=== PATIENT | male | born 1975 | race African-American/Black ===

== ENCOUNTER 2016-11-11 22:41 | Inpatient (IN) | payer OTHER ==
[~2016-11-11] VITALS: Ht 188 cm; Wt 88.0 kg
[~2016-11-11 22:41] MED LIST: CIPR500T4 PO; IBUP-232 PO; ZOFR4TAB3 SL
[2016-11-11 22:47] VITALS: BP 128/75; PULSE 86; RESP 20; O2SAT 99
[2016-11-11 22:54] VITALS: O2SAT 99
[2016-11-11] MEDS ORDERED: SODIUM CHLORIDE 0.9% FLUSH 10 ML FLUSH IVF PRN (23:00)
[2016-11-11 23:04] LABS: AUTOMATED NEUTROPHIL # 4.1 TH/MM3 (1.8-7.7); BASOPHIL # 0.1 TH/MM3 (0-0.2); EOSINOPHIL # 0.2 TH/MM3 (0-0.4); EOSINOPHIL % 2.3 % (0.0-4.0); HEMATOCRIT 37.6 % (39.0-51.0); LYMPH % 42.7 % (9.0-44.0); LYMPHOCYTE # 3.7 TH/MM3 (1.0-4.8); MEAN CELL VOLUME 87.8 FL (80.0-100.0); MEAN CORPUSCULAR HEMOGLOBIN 29.6 PG (27.0-34.0); MEAN CORPUSCULAR HGB CONC 33.7 % (32.0-36.0); MONO % 6.9 % (0.0-8.0); NEUT % 47.1 % (16.0-70.0); PLATELET COUNT 249 TH/MM3 (150-450); RED BLOOD COUNT 4.28 MIL/MM3 (4.50-5.90); RED CELL DISTRIBUTION WIDTH 12.7 % (11.6-17.2); WHITE BLOOD COUNT 8.7 TH/MM3 (4.0-11.0)
[2016-11-11 23:07] LABS: HEMO FLAGS AUTO DIFF
[2016-11-11 23:23] LABS: APTT (PATIENT) 28.8 SEC (24.3-30.1); PROTHROMBIN TIME - PATIENT 11.4 SEC (9.8-11.6)
[2016-11-11 23:28] LABS: ANION GAP 10 MEQ/L (5-15); BICARBONATE 27.2 MEQ/L (21.0-32.0); BLOOD UREA NITROGEN 10 MG/DL (7-18); CHLORIDE 104 MEQ/L (98-107); GLOMERULAR FILTRATION RATE 92 ML/MIN (>89); MAGNESIUM 1.9 MG/DL (1.5-2.5); POTASSIUM 3.3 MEQ/L (3.5-5.1); SODIUM (NA) 141 MEQ/L (136-145)
[2016-11-11 23:31] LABS: CREATINE KINASE 332 U/L (39-308)
[2016-11-11 23:33] LABS: PLATELET ESTIMATE SMEAR NORMAL (NORMAL); PLATELET MORPHOLOGY NORMAL (NORMAL); SCAN/DIFF AUTO DIFF CONFIRMED
--- NOTE | 2016-11-11 23:36 | RADRPT ---
EXAM DATE/TIME: 11/11/2016 22:57 [facility] COMPARISON: No previous studies available for comparison. INDICATIONS : Fall. MEDICAL HISTORY : None. SURGICAL HISTORY : None. ENCOUNTER: Initial ACUITY: 1 day PAIN SCORE: Non-responsive. LOCATION: Bilateral chest FINDINGS: A single view of the chest demonstrates the lungs to be symmetrically aerated without evidence of mas s, infiltrate or effusion. The cardiomediastinal contours are unremarkable. Osseous structures are intact. CONCLUSION: No acute disease. Rubin Lopez Jr., MD on November 11, 2016 at 23:34 Board Certified Radiologist. This report was verified electronically.
--- NOTE | 2016-11-11 23:39 | RADRPT ---
EXAM DATE/TIME: 11/11/2016 23:18 [facility] COMPARISON: No previous studies available for comparison. INDICATIONS : Right hip pain post fall. MEDICAL HISTORY : None. SURGICAL HISTORY : None. ENCOUNTER: Initial ACUITY: 1 day PAIN SCORE: 8/10 LOCATION: Right pelvis FINDINGS: Examination of the right hip was performed with AP Pelvis. The primary and secondary trabecular jorge alnce of the femoral neck is intact. The hip joint is of normal width without significant sclerosis or bony hypertrophy. The acetabulum is grossly intact. CONCLUSION: Unremarkable examination of the right hip. Rubin Lopez Jr., MD on November 11, 2016 at 23:36 Board Certified Radiologist. This report was verified electronically.
[2016-11-11 23:43] LABS: CKMB 3.1 NG/ML (0.5-3.6)
[2016-11-11 23:59] VITALS: O2SAT 98
[2016-11-12] VITALS (9 sets, daily range): BP systolic 95–120; BP diastolic 58–76; PULSE 50–72; RESP 16–18; TEMP 97.3–97.8; O2SAT 98–100
[2016-11-12] MEDS ORDERED: HYDROmorphone HCL PF 1 MG/ML VIAL IV PUSH ONE
[2016-11-12] MEDS ORDERED: ONDANSETRON HCL 4 MG/2 ML VIAL IV ONE
[2016-11-12] MEDS ORDERED: SODIUM CHLOR 0.9% 1000 ML INJ 1,000 ML IV ONE
--- NOTE | 2016-11-12 00:57 | RADRPT ---
EXAM DATE/TIME: 11/12/2016 00:22 [facility] COMPARISON: No previous studies available for comparison. INDICATIONS : Unwitnessed fall with positive loss of consciousness. Altered mental status. RADIATION DOSE: 45.8 CTDIvol (mGy) MEDICAL HISTORY : None SURGICAL HISTORY : None. ENCOUNTER: Initial ACUITY: 1 day PAIN SCALE: 6/10 LOCATION: cranial TECHNIQUE: Multiple contiguous axial images were obtained of the head. Using automated exposure control and adj ustment of the mA and/or kV according to patient size, radiation dose was kept as low as reasonably a chievable to obtain optimal diagnostic quality images. FINDINGS: CEREBRUM: The ventricles are normal for age. No evidence of midline shift, mass lesion, hemorrhage or acute in farction. No extra-axial fluid collections are seen. POSTERIOR FOSSA: The cerebellum and brainstem are intact. The 4th ventricle is midline. The cerebellopontine angle i s unremarkable. EXTRACRANIAL: The visualized portion of the orbits is intact. SKULL: The calvaria is intact. No evidence of skull fracture. CONCLUSION: Normal examination. Rubin Lopez Jr., MD on November 12, 2016 at 0:54 Board Certified Radiologist. This report was verified electronically.
--- NOTE | 2016-11-12 01:00 | RADRPT ---
EXAM DATE/TIME: 11/12/2016 00:25 [facility] COMPARISON: No previous studies available for comparison. INDICATIONS : Unwitnessed fall with positive loss of consciousness. Altered mental status. RADIATION DOSE: 36.79 CTDIvol (mGy) MEDICAL HISTORY : None SURGICAL HISTORY : None. ENCOUNTER: Initial ACUITY: 1 day PAIN SCORE: 7/10 LOCATION: facial TECHNIQUE: Volumetric scanning of the facial bones was performed. Using automated exposure control and adjustme nt of the mA and/or kV according to patient size, radiation dose was kept as low as reasonably achiev able to obtain optimal diagnostic quality images. FINDINGS: ORBITS: The orbital and infraorbital osseous structures are intact. The retroconal structures have a normal configuration. No radiopaque foreign bodies are seen. NASAL BONE: The nasal bone and maxillary spine are intact ZYGOMATIC ARCHES: Symmetric without evidence of fracture. SINUSES: The maxillary, ethmoid and frontal sinuses are intact. No air-fluid levels seen. Small mucous retent ion cysts are seen involving both maxillary sinuses. Minimal mucosal thickening is seen involving eth moid air cells bilaterally. NASAL CAVITY: The nasal septum is intact and midline. The lacrimal ducts are intact. SOFT TISSUES: Tiny punctate densities are seen involving the skin surface or immediate superficial dermal layers ov erlying the forehead. No soft-tissue swelling is seen. INTRACRANIAL: No intracranial air seen. CRIBIFORM PLATE: Grossly intact. CONCLUSION: 1. No acute abnormality. 2. Multiple tiny punctate densities seen involving either the skin surface or the immediate dermal la yers. 3. Chronic sinus disease. Rubin Lopez Jr., MD on November 12, 2016 at 0:55 Board Certified Radiologist. This report was verified electronically.
[2016-11-12] MEDS ORDERED: IOHEXOL 350 MG/ML 10 ML VIAL (for RAD DIAG) IV ONE ×2 (01:01→20:22)
--- NOTE | 2016-11-12 01:13 | RADRPT ---
EXAM DATE/TIME: 11/12/2016 00:22 [facility] COMPARISON: No previous studies available for comparison. INDICATIONS : Unwitnessed fall with positive loss of consciousness. Altered mental status. RADIATION DOSE: ; Reconstructed from previous dataset MEDICAL HISTORY : None SURGICAL HISTORY : None. ENCOUNTER: Initial ACUITY: 1 day PAIN SCALE: 7/10 LOCATION: neck TECHNIQUE: Volumetric scanning of the cervical spine was performed. Multiplanar reconstructions in the sagittal, coronal and oblique axial planes were performed. Using automated exposure control and adjustment o f the mA and/or kV according to patient size, radiation dose was kept as low as reasonably achievable to obtain optimal diagnostic quality images. FINDINGS: VERTEBRAE: Normal vertebral body height. ALIGNMENT: No evidence of subluxation. C2-C3: The bony spinal canal is normal in size. No evidence of disc bulge or herniation. The neural forami na are bilaterally patent. C3-C4: The bony spinal canal is normal in size. No evidence of disc bulge or herniation. The neural forami na are bilaterally patent. C4-C5: The bony spinal canal is normal in size. No evidence of disc bulge or herniation. The neural forami na are bilaterally patent. C5-C6: The bony spinal canal is normal in size. No evidence of disc bulge or herniation. The neural forami na are bilaterally patent. C6-C7: The bony spinal canal is normal in size. No evidence of disc bulge or herniation. The neural forami na are bilaterally patent. C7-T1: The bony spinal canal is normal in size. No evidence of disc bulge or herniation. The neural forami na are bilaterally patent. CONCLUSION: Normal examination. Rubin Lopez Jr., MD on November 12, 2016 at 1:09 Board Certified Radiologist. This report was verified electronically.
[2016-11-12] MEDS ORDERED: LIDOCAINE 1%/EPINEPHrine 1:100,000 SOLN 20 ML VIAL INFIL ONE (02:00)
--- NOTE | 2016-11-12 02:26 | RADRPT ---
EXAM DATE/TIME: 11/12/2016 00:22 [facility] COMPARISON: No previous studies available for comparison. INDICATIONS : Unwitnessed fall with positive loss of consciousness. Altered mental status. IV CONTRAST: 100 cc Omnipaque 350 (iohexol) IV ; Cumulative dose for multiple exams. RADIATION DOSE: 15.45 CTDIvol (mGy) ; Combined studies MEDICAL HISTORY : None SURGICAL HISTORY : None. ENCOUNTER: Initial ACUITY: 1 day PAIN SCALE: 6/10 LOCATION: cranial Elevated flow velocities and ICA/CCA ratios have been found to correlate with increased degrees of vessel stenosis, calculated as percentage of diameter relative to a normal segment of distal ICA/CCA. TECHNIQUE: Volumetric scanning was performed using a multirow detector CT scanner. The data was post processed with a variety of visualization algorithms including full-volume maximum intensity projection, multip lanar sliding thin-slab reformation, curved-planar reformation, and surface-rendering techniques. Us ing automated exposure control and adjustment of the mA and/or kV according to patient size, radiatio n dose was kept as low as reasonably achievable to obtain optimal diagnostic quality images. FINDINGS: AORTIC ARCH: On the initial image of the study there is a linear area of decreased density involving the ascending aorta just proximal to the arch. There is motion artifact in this portion of the exam. There is a th ree-vessel origin of the great vessels from the aorta. No evidence of ostial narrowing. RIGHT CAROTID: The common carotid artery is intact. The carotid bulb has a normal configuration without ulceration o r narrowing. The internal carotid artery lumen is smooth without stenosis. The external carotid estrellita ry is intact. LEFT CAROTID: The common carotid artery is intact. The carotid bulb has a normal configuration without ulceration or narrowing. The internal carotid artery lumen is smooth without stenosis. The external carotid ar gary is intact. VERTEBRALS: The vertebral arteries have a symmetric diameter. No stenotic lesions are seen. CONCLUSION: 1. On the initial image of the study there is a linear area of decreased density involving the ascend ing aorta. This is an area of motion artifact. This may simply be artifact in nature due to the motio n. I cannot exclude a dissection involving ascending aorta. A CTA of the thoracic aorta would be need ed to further evaluate. 2. Patent carotid arteries and vertebral arteries bilaterally. Rubin Lopez Jr., MD on November 12, 2016 at 2:20 Board Certified Radiologist. This report was verified electronically.
--- NOTE | 2016-11-12 02:28 | RADRPT ---
EXAM DATE/TIME: 11/12/2016 00:22 [facility] COMPARISON: No previous studies available for comparison. INDICATIONS : Unwitnessed fall with positive loss of consciousness. Altered mental status. IV CONTRAST: 100 cc Omnipaque 350 (iohexol) IV ; Cumulative dose for multiple exams. RADIATION DOSE: 15.45 CTDIvol (mGy) ; Combined studies MEDICAL HISTORY : None SURGICAL HISTORY : None. ENCOUNTER: Initial ACUITY: 1 day PAIN SCALE: 5/10 LOCATION: cranial TECHNIQUE: Volumetric scanning was performed using a multi-row detector CT scanner. The data was post processed with a variety of visualization algorithms including full volume maximum intensity projection, multi -planar sliding thin slab reformation, curved planar reformation, and surface rendering techniques. Using automated exposure control and adjustment of the mA and/or kV according to patient size, radiat ion dose was kept as low as reasonably achievable to obtain optimal diagnostic quality images. FINDINGS: There is excellent visualization of the major intracranial arteries out to the second-order branch ve ssels. There is no evidence for aneurysm, vessel truncation or stenosis, and no evidence for vascula r malformation. CONCLUSION: Normal examination. Rubin Lopez Jr., MD on November 12, 2016 at 2:25 Board Certified Radiologist. This report was verified electronically.
--- NOTE | 2016-11-12 02:34 | PD ---
Physical Exam Time Seen by Provider: 02:05 (Reilly Tatum) Data Data Last Documented VS Vital Signs Date Time Temp Pulse Resp B/P Pulse Ox O2 Delivery O2 Flow Rate FiO2 11/12/16 02:09 72 16 118/75 99 Room Air 11/11/16 23:59 2 (Maria Esther Sheriff MD) Orders Electrocardiogram (11/11/16 22:49) Basic Metabolic Panel (Bmp) (11/11/16 22:49) Complete Blood Count With Diff (11/11/16 22:49) Magnesium (Mg) (11/11/16 22:49) Ckmb (Isoenzyme) Profile (11/11/16 22:49) Troponin I (11/11/16 22:49) Act Partial Throm Time (Ptt) (11/11/16 22:49) Prothrombin Time / Inr (Pt) (11/11/16 22:49) Chest, Single Ap (11/11/16 22:49) Ct Brain W/O Iv Contrast(Rout) (11/11/16 22:49) Ct Cerv Spine W/O Contrast (11/11/16 22:49) Blood Glucose (11/11/16 22:49) Ecg Monitoring (11/11/16 22:49) Iv Access Insert/Monitor (11/11/16 22:49) Oximetry (11/11/16 22:49) Sodium Chloride 0.9% Flush (Ns Flush) (11/11/16 23:00) Ct Facial Bones W/O Iv Cont (11/11/16 ) Cta Brain W Iv Contrast W 3d (11/11/16 ) Drug Screen, Random Urine (11/11/16 23:06) Hip, Uni(Ap&Lat) W Ap Pelvis (11/11/16 23:06) Ice/Cold Pack (11/11/16 23:06) Alcohol (Ethanol) (11/11/16 22:55) CKMB (11/11/16 22:55) CKMB% (11/11/16 22:55) Cta Neck W Iv Contrast W 3d (11/11/16 23:34) Sodium Chlor 0.9% 1000 Ml Inj (Ns 1000 M (11/12/16 00:00) Ondansetron Inj (Zofran Inj) (11/12/16 00:00) Hydromorphone Pf Inj (Dilaudid Pf Inj) (11/12/16 00:00) Iohexol 350 Inj (Omnipaque 350 Inj) (11/12/16 01:01) Lidocai-Epi 1%-1:100,000 Inj (Xylocaine- (11/12/16 02:00) Admit Order (Ed Use Only) (11/12/16 02:39) (Maria Esther Sheriff MD) Labs Laboratory Tests Test 11/11/16 22:55 White Blood Count 8.7 TH/MM3 Red Blood Count 4.28 MIL/MM3 Hemoglobin 12.7 GM/DL Hematocrit 37.6 % Mean Corpuscular Volume 87.8 FL Mean Corpuscular Hemoglobin 29.6 PG Mean Corpuscular Hemoglobin 33.7 % Concent Red Cell Distribution Width 12.7 % Platelet Count 249 TH/MM3 Mean Platelet Volume 7.9 FL Neutrophils (%) (Auto) 47.1 % Lymphocytes (%) (Auto) 42.7 % Monocytes (%) (Auto) 6.9 % Eosinophils (%) (Auto) 2.3 % Basophils (%) (Auto) 1.0 % Neutrophils # (Auto) 4.1 TH/MM3 Lymphocytes # (Auto) 3.7 TH/MM3 Monocytes # (Auto) 0.6 TH/MM3 Eosinophils # (Auto) 0.2 TH/MM3 Basophils # (Auto) 0.1 TH/MM3 CBC Comment AUTO DIFF Differential Comment AUTO DIFF CONFIRMED Platelet Estimate NORMAL Platelet Morphology Comment NORMAL Red Cell Morphology Comment NORMAL Prothrombin Time 11.4 SEC Prothromb Time International 1.0 RATIO Ratio Activated Partial 28.8 SEC Thromboplast Time Sodium Level 141 MEQ/L Potassium Level 3.3 MEQ/L Chloride Level 104 MEQ/L Carbon Dioxide Level 27.2 MEQ/L Anion Gap 10 MEQ/L Blood Urea Nitrogen 10 MG/DL Creatinine 1.07 MG/DL Estimat Glomerular Filtration 92 ML/MIN Rate Random Glucose 81 MG/DL Calcium Level 9.5 MG/DL Magnesium Level 1.9 MG/DL Total Creatine Kinase 332 U/L Creatine Kinase MB 3.1 NG/ML Creatine Kinase MB % 0.9 % Troponin I LESS THAN 0.02 NG/ML Ethyl Alcohol Level LESS THAN 3 MG/DL (Maria Esther Sheriff MD) [facility] Medical Record Reviewed: Yes Supervised Visit with TOMAS: No Narrative Course This patient presents a laceration of the chin, I was asked to repair it. He verbally consents. (Reilly Tatum) Procedures Procedure Narrative LACERATION LOCATION: Chin LENGTH: 2 cm NUMBER OF STITCHES/RADHA: 6 REPAIR: The area of the laceration was prepped with Betadine and sterilely draped. The laceration was infiltrated with 1% lidocaine with epinephrine. The wound was copiously irrigated and explored without evidence of foreign body , tendon injury or neurovascular injury. The wound was closed using 6-0 prolene simple interrupted. This was a single layer repair. A sterile dressing was applied. The patient was advised to keep the dressing clean and dry. Patient tolerated the procedure well. (Reilly Tatum) Reilly Tatum Nov 12, 2016 02:34 Maria Esther Sheriff MD Nov 12, 2016 02:58
--- NOTE | 2016-11-12 03:04 | PD ---
HPI Chief Complaint: syncope Time Seen by Provider: 23:05 Travel History International Travel<30 days: No Contact w/Intl Traveler<30days: No Traveled to known affect area: No History of Present Illness HPI The patient is a 40 year old male who presents to the [facility] emergency department with a history of presenting the emergency department with altered mentation after falling and hitting his head. His awoke to him hitting the floor. The patient on arrival is not speaking regularly reports having a severe headache. The only thing that he will say about his symptoms prior to hitting his head is he did have a sensation that his heart was skipping beats. The patient denies having any neck pain. The patient reports that he does have some pain in the right hip when he moves it. During the course of the patient' s emergency department visit, the patient became more awake and alert and was able to provide additional history. The patient denies having any prior cardiac history or history of syncope. The patient does however report that last week he did have an episode of chest pain and another episode of sensations that his heart was skipping beats. The patient denies any recent fevers, cough, congestion, neck pain, abdominal pain, vomiting, diarrhea, urinary symptoms, or other neurologic symptoms. PFSH Past Medical History Narrative Medical The patient's past medical history is reportedly none. Medical History: Denies Significant Hx Diminished Hearing: No Gastrointestinal Disorders: Yes (CONSTIPATION) Tetanus Vaccination: < 5 Years Influenza Vaccination: No Past Surgical History Narrative Surgical The patient's past surgical history is significant for left hand skin. Other Surgery: Yes (L HAND SKIN GRAFT) Social History Alcohol Use: Yes (OCC) Tobacco Use: Yes (LESS THAN 1/2 PPD) Substance Use: No Allergies-Medications (Allergen,Severity, Reaction): Coded Allergies: No Known Allergies (Verified , 11/11/16) Reported Meds & Prescriptions Reported Meds & Active Scripts Active Zofran ODT (Ondansetron HCl) 4 Mg Tab 4 Mg SL QID PRN FOR NAUSEA/VOMITING Motrin (Ibuprofen) 600 Mg Tab 600 Mg PO QID GIVE WITH FOOD Cipro (Ciprofloxacin HCl) 500 Mg Tab 500 Mg PO BID Review of Systems Except as stated in HPI: all other systems reviewed are Neg General / Constitutional: No: Fever Eyes: No: Visual changes HENT: Positive: Headaches, No: Neck Stiffness, Neck Pain Cardiovascular: Positive: Chest Pain or Discomfort, Palpitations Respiratory: No: Shortness of Breath Gastrointestinal: No: Nausea, Vomiting, Diarrhea, Abdominal Pain Genitourinary: No: Dysuria Musculoskeletal: Positive: Myalgias, Pain Skin: No Rash Neurologic: Positive: Headache, Change in Mentation, No: Weakness, Focal Abnormalities, Slurred Speech, Sensory Disturbance Psychiatric: No: Depression Endocrine: No: Polydipsia Hematologic/Lymphatic: No: Easy Bruising Physical Exam Narrative General: The patient is a well-developed well-nourished male who is uncomfortable appearing on arrival, tearful, holding the right side of his head. The patient was placed in a [place] collar. Head and Neck exam: Head is normocephalic atraumatic. Eyes: EOMI, pupils are equal round and reactive to light. Nose: Midline septum with pink mucous membranes Mouth: Dentition unremarkable. Moist mucus membranes. Posterior oropharynx is not erythematous. No tonsillar hypertrophy. Uvula midline. Airway patent. On examination of the patient's chin the patient is noted to have an approximately 3 cm linear laceration. Bleeding is controlled. Neck: No palpable lymphadenopathy. No nuchal rigidity. No thyromegaly. No spinous process tenderness to palpation. No step-off or crepitus, no erythema or ecchymosis. The patient was placed on a cervical collar. Cardiovascular: Regular rate and rhythm without murmurs, gallops, or rubs. No pulse deficit to the extremities and simultaneous auscultation and palpation of his radial artery. Lungs: Clear to auscultation bilaterally. No wheezes, rhonchi, or rales. Abdomen: Soft, without tenderness to palpation in all 4 quadrants of the abdomen. No guarding, rebound, or rigidity. Normal bowel sounds are audible. Extremities: No clubbing, cyanosis, or edema. 2+ pulses in all 4 extremities. No calf tenderness on palpation. The patient reports with flexion of the right hip that he has discomfort in the right side of the pelvis. No pelvic instability. Back: No spinous process tenderness to palpation. No costovertebral angle tenderness to palpation. No step-off or crepitus Neurologic Exam: Cranial nerves 2-12 were intact on exam. Strength is 5/5 in all 4 extremities. No sensory deficits noted. Skin Exam: No rash noted. Data Data Last Documented VS Vital Signs Date Time Temp Pulse Resp B/P Pulse Ox O2 Delivery O2 Flow Rate FiO2 11/12/16 02:09 72 16 118/75 99 Room Air 11/11/16 23:59 2 Orders Electrocardiogram (11/11/16 22:49) Basic Metabolic Panel (Bmp) (11/11/16 22:49) Complete Blood Count With Diff (11/11/16 22:49) Magnesium (Mg) (11/11/16 22:49) Ckmb (Isoenzyme) Profile (11/11/16 22:49) Troponin I (11/11/16 22:49) Act Partial Throm Time (Ptt) (11/11/16 22:49) Prothrombin Time / Inr (Pt) (11/11/16 22:49) Chest, Single Ap (11/11/16 22:49) Ct Brain W/O Iv Contrast(Rout) (11/11/16 22:49) Ct Cerv Spine W/O Contrast (11/11/16 22:49) Blood Glucose (11/11/16 22:49) Ecg Monitoring (11/11/16 22:49) Iv Access Insert/Monitor (11/11/16 22:49) Oximetry (11/11/16 22:49) Sodium Chloride 0.9% Flush (Ns Flush) (11/11/16 23:00) Ct Facial Bones W/O Iv Cont (11/11/16 ) Cta Brain W Iv Contrast W 3d (11/11/16 ) Drug Screen, Random Urine (11/11/16 23:06) Hip, Uni(Ap&Lat) W Ap Pelvis (11/11/16 23:06) Ice/Cold Pack (11/11/16 23:06) Alcohol (Ethanol) (11/11/16 22:55) CKMB (11/11/16 22:55) CKMB% (11/11/16 22:55) Cta Neck W Iv Contrast W 3d (11/11/16 23:34) Sodium Chlor 0.9% 1000 Ml Inj (Ns 1000 M (11/12/16 00:00) Ondansetron Inj (Zofran Inj) (11/12/16 00:00) Hydromorphone Pf Inj (Dilaudid Pf Inj) (11/12/16 00:00) Iohexol 350 Inj (Omnipaque 350 Inj) (11/12/16 01:01) Lidocai-Epi 1%-1:100,000 Inj (Xylocaine- (11/12/16 02:00) Admit Order (Ed Use Only) (11/12/16 02:39) Labs Laboratory Tests Test 11/11/16 22:55 White Blood Count 8.7 TH/MM3 Red Blood Count 4.28 MIL/MM3 Hemoglobin 12.7 GM/DL Hematocrit 37.6 % Mean Corpuscular Volume 87.8 FL Mean Corpuscular Hemoglobin 29.6 PG Mean Corpuscular Hemoglobin 33.7 % Concent Red Cell Distribution Width 12.7 % Platelet Count 249 TH/MM3 Mean Platelet Volume 7.9 FL Neutrophils (%) (Auto) 47.1 % Lymphocytes (%) (Auto) 42.7 % Monocytes (%) (Auto) 6.9 % Eosinophils (%) (Auto) 2.3 % Basophils (%) (Auto) 1.0 % Neutrophils # (Auto) 4.1 TH/MM3 Lymphocytes # (Auto) 3.7 TH/MM3 Monocytes # (Auto) 0.6 TH/MM3 Eosinophils # (Auto) 0.2 TH/MM3 Basophils # (Auto) 0.1 TH/MM3 CBC Comment AUTO DIFF Differential Comment AUTO DIFF CONFIRMED Platelet Estimate NORMAL Platelet Morphology Comment NORMAL Red Cell Morphology Comment NORMAL Prothrombin Time 11.4 SEC Prothromb Time International 1.0 RATIO Ratio Activated Partial 28.8 SEC Thromboplast Time Sodium Level 141 MEQ/L Potassium Level 3.3 MEQ/L Chloride Level 104 MEQ/L Carbon Dioxide Level 27.2 MEQ/L Anion Gap 10 MEQ/L Blood Urea Nitrogen 10 MG/DL Creatinine 1.07 MG/DL Estimat Glomerular Filtration 92 ML/MIN Rate Random Glucose 81 MG/DL Calcium Level 9.5 MG/DL Magnesium Level 1.9 MG/DL Total Creatine Kinase 332 U/L Creatine Kinase MB 3.1 NG/ML Creatine Kinase MB % 0.9 % Troponin I LESS THAN 0.02 NG/ML Ethyl Alcohol Level LESS THAN 3 MG/DL MDM Medical Decision Making Medical Screen Exam Complete: Yes Emergency Medical Condition: Yes Medical Record Reviewed: Yes Interpretation(s) Last Impressions Neck CTA 11/11/16 7884 Signed Impressions: Service Date/Time: Saturday, November 12, 2016 00:22 - CONCLUSION: 1. On the initial image of the study there is a linear area of decreased density involving the ascending aorta. This is an area of motion artifact. This may simply be artifact in nature due to the motion. I cannot exclude a dissection involving ascending aorta. A CTA of the thoracic aorta would be needed to further evaluate. 2. Patent carotid arteries and vertebral arteries bilaterally. Rubin Lopez Jr., MD Hip and Pelvis X-Ray 11/11/16 2306 Signed Impressions: Service Date/Time: Friday, November 11, 2016 23:18 - CONCLUSION: Unremarkable examination of the right hip. Rubin Lopez Jr., MD Head CT 11/11/16 2249 Signed Impressions: Service Date/Time: Saturday, November 12, 2016 00:22 - CONCLUSION: Normal examination. Rubin Lopez Jr., MD Chest X-Ray 11/11/16 2249 Signed Impressions: Service Date/Time: Friday, November 11, 2016 22:57 - CONCLUSION: No acute disease. Rubin Lopez Jr., MD Cervical Spine CT 11/11/16 2249 Signed Impressions: Service Date/Time: Saturday, November 12, 2016 00:22 - CONCLUSION: Normal examination. Rubin Lopez Jr., MD Maxillofacial CT 11/11/16 0000 Signed Impressions: Service Date/Time: Saturday, November 12, 2016 00:25 - CONCLUSION: 1. No acute abnormality. 2. Multiple tiny punctate densities seen involving either the skin surface or the immediate dermal layers. 3. Chronic sinus disease. Rubin Lopez Jr., MD Head CTA 11/11/16 0000 Signed Impressions: Service Date/Time: Saturday, November 12, 2016 00:22 - CONCLUSION: Normal examination. Rubin Lopez Jr., MD Differential Diagnosis Intracranial hemorrhage, versus brain aneurysm, versus cardiac arrhythmia, versus acute coronary syndrome Narrative Course During the course of the patients emergency department visit, the patients history, examination, and differential diagnosis were reviewed with the patient. The patient had IV access obtained and blood work sent for analysis. The patient was placed on a environmental monitoring technician with oximetry and blood pressure monitoring. An EKG was done on arrival. The patient's EKG shows a sinus rhythm heart rate of 74, no acute ST segment elevation or depression, T waves are inverted in lead 3, V1. The patient was provided normal saline IV fluids, hydromorphone for pain, Zofran for nausea. The patient's tetanus is reportedly up-to-date. The patients laboratory studies were reviewed and remarkable for a white count of 8.7, hemoglobin 12.7, platelets 249 with a normal differential, CMP is remarkable for potassium of 3.3, CPK 332 with a normal MB percent, troponin I less than 0.02, PT PTT within normal limits, alcohol level less than 3. Radiology studies were reviewed and remarkable for a chest x-ray that shows no acute abnormality. CT scan of the head shows no acute abnormality CTA of the brain shows no acute abnormality. Hip x-ray and pelvis x-ray showed no acute abnormality. CT a of the neck shows on the initial image of the study a linear area of decreased density involving the face and aorta. This may simply be artifact in nature due to motion I cannot exclude a dissection involving the ascending aorta, CTA of the thoracic aorta would be needed to further evaluate. Patent carotid arteries and vertebral arteries bilaterally. Reilly, the physician marketing administrative assistant was consultative for wound cleansing and repair. The patients results were discussed with the patient, including the plan of care. I explained that further testing and/ or monitoring is indicated based on the patients history, examination, and/ or laboratory findings. Therefore, I recommended admission for additional evaluation. The patient expressed understanding and was agreeable with this plan. The patient was admitted to the hospital in stable condition and [facility] Physician Communication Physician Communication The patient's case was discussed with Dr. Spears. He did agree to [facility] the [facility]. Diagnosis Primary Impression: Syncope and collapse Additional Impressions: Head injury Qualified Code: S09.90XA - Head injury, initial encounter Laceration of chin Qualified Code: S01.81XA - Laceration of chin, initial encounter Admitting Information Admitting Physician Requests: Admit Maria Esther Sheriff MD Nov 12, 2016 03:04
[2016-11-12] MEDS ORDERED: POTASSIUM CHLORIDE 10 MEQ CONTROLLED RELEASE TAB PO ONE (05:45)
--- NOTE | 2016-11-12 09:14 | EKG ---
Date Performed: 11/11/2016 Time Performed: 22:54:55 PTAGE: 40 years EKG: Sinus rhythm NORMAL ECG NO PREVIOUS TRACING DOCTOR: Vipin Vivar Interpretating Date/Time 11/12/2016 09:12:31
[2016-11-12 10:04] LABS: CREATINE KINASE 327 U/L (39-308)
--- NOTE | 2016-11-12 10:04 | HHI.HP ---
HPI Service [facility] Primary Care Physician Dr. Antonio Rosas Admission Diagnosis syncope Chief Complaint: Syncope, palpitations Travel History International Travel<30 Days: No Contact w/Intl Traveler <30 Da: No Traveled to Known Affected Are: No History of Present Illness Mr. Downing is a 40 y/o AAM without significant past medical history who presented to the ED at [facility] during the night on 11/12/16 with after a syncopal episode. The pt reports that last night he got up to go to the bathroom to urinate. After he finished using the restroom and was washing his hands he felt some palpitations in his chest, "like my heart was skipping beats." Then as he was waking back to the bedroom he passed out and collapsed to the floor striking his chin on the floor. His girlfriend awoke to him hitting the floor. She went to him and he was not awake. She shook him awake but he was not really communicating normally and wasn't fully responsive. On arrival he was reportedly not speaking normally and complained of a severe headache. There was no reported seizure activity. The patient denies having any neck pain. About 20- 30 minutes into the patient's emergency department visit, he became more awake and alert and was able to provide additional history. The patient denies having any prior cardiac history or history of syncope. The patient does however report that last week he did have an episode of palpitations while he was out walking with this sensation that his heart was "skipping beats" which lasted a few seconds and then dissipated. The patient denies any recent fevers, cough, congestion, neck pain, abdominal pain, vomiting, diarrhea, urinary symptoms, or other neurologic symptoms. He states that his brother has a hx of a "hole in his heart" and he has a paternal uncle who had a "hole in his heart" and was on a heart transplant list at a young age. An EKG was done on arrival which showed a sinus rhythm heart rate of 74, no acute ST segment elevation or depression, T waves are inverted in lead 3, V1. The patient was given IVF. Laboratory studies noted WBC count of 8.7, hgb 12.7, platelets 249, potassium 3.3, CPK 332 with a normal MB percent, troponin I less than 0.02, PT/PTT were within normal limits, and alcohol level less than 3. Chest x-ray showed no acute abnormality. CT scan Head showed no acute abnormality. CTA of the brain showed no acute abnormality. Hip x-ray and pelvis x-ray showed no acute abnormality. CTA of the neck showed on the initial image of the study a linear area of decreased density involving the face and aorta, this may simply be artifact in nature due to motion but cannot exclude a dissection involving the ascending aorta. CTA of the thoracic aorta was ordered for this morning and is pending. Overnight pts telemetry noted bradycardia into the 40's. Pt is currently getting 2D echocardiogram performed as well. Review of Systems Constitutional: DENIES: Diaphoretic episodes, Fever, Chills, Dizziness Eyes: DENIES: Vision loss Ears, nose, mouth, throat: DENIES: Hearing loss Respiratory: DENIES: Cough, Shortness of breath Cardiovascular: COMPLAINS OF: Palpitations, DENIES: Chest pain, Dyspnea on Exertion, Lower Extremity Edema Gastrointestinal: DENIES: Abdominal pain, Constipation, Diarrhea, Nausea, Vomiting Genitourinary: DENIES: Hematuria, Dysuria Musculoskeletal: DENIES: Back pain, Neck pain Neurologic: COMPLAINS OF: Headache Psychiatric: DENIES: Confusion Past Family Social History Past Medical History Tobacco use Past Surgical History Left hand skin graft Reported Medications No home meds Allergies: Coded Allergies: No Known Allergies (Verified , 11/11/16) Family History Brother with a "hole in his heart" but is essentially healthy otherwise Paternal uncle had some sort of heart disease and a "hole in his heart" as well Social History (+)Tobacco use, less than 3-4 cigarettes per day from age 28 to present. Rare social alcohol use but used to drink heavily, from age 15 to 24 he drank 2 bottles of gin per day and this has tapered off since then to rare use. 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 He was 2-4 miles per day Pt is a vegan Physical Exam Vital Signs Vital Signs Date Time Temp Pulse Resp B/P Pulse Ox O2 Delivery O2 Flow Rate FiO2 11/12/16 08:18 97.3 51 16 97/63 99 11/12/16 06:02 97.7 53 18 95/58 98 11/12/16 05:00 50 16 108/68 100 Room Air 11/12/16 03:00 59 16 105/65 100 Nasal Cannula 2 11/12/16 02:09 72 16 118/75 99 Room Air 11/11/16 23:59 98 Nasal Cannula 2 11/11/16 22:54 99 Room Air 11/11/16 22:47 86 20 128/75 99 Physical Exam GENERAL: This is a well-nourished, well-developed patient, in no apparent distress. HEENT: Atraumatic. Normocephalic. No temporal or scalp tenderness. No scleral icterus. Airway patent. Sutures in chin are well approximated NECK: Trachea midline, supple, nontender. CARDIO: Regular RESP: CTA bilaterally. No wheezes, rales, or rhonchi. ABD: +BS, soft, non-tender, nondistended. No guarding. EXT: Extremities without clubbing, cyanosis, or edema. NEURO: Awake and alert. Motor and sensory grossly within normal limits. Normal speech. Laboratory Laboratory Tests Test 11/11/16 22:55 White Blood Count 8.7 Red Blood Count 4.28 Hemoglobin 12.7 Hematocrit 37.6 Mean Corpuscular Volume 87.8 Mean Corpuscular Hemoglobin 29.6 Mean Corpuscular Hemoglobin 33.7 Concent Red Cell Distribution Width 12.7 Platelet Count 249 Mean Platelet Volume 7.9 Neutrophils (%) (Auto) 47.1 Lymphocytes (%) (Auto) 42.7 Monocytes (%) (Auto) 6.9 Eosinophils (%) (Auto) 2.3 Basophils (%) (Auto) 1.0 Neutrophils # (Auto) 4.1 Lymphocytes # (Auto) 3.7 Monocytes # (Auto) 0.6 Eosinophils # (Auto) 0.2 Basophils # (Auto) 0.1 CBC Comment AUTO DIFF Differential Comment AUTO DIFF CONFIRMED Platelet Estimate NORMAL Platelet Morphology Comment NORMAL Red Cell Morphology Comment NORMAL Prothrombin Time 11.4 Prothromb Time International 1.0 Ratio Activated Partial 28.8 Thromboplast Time Sodium Level 141 Potassium Level 3.3 Chloride Level 104 Carbon Dioxide Level 27.2 Anion Gap 10 Blood Urea Nitrogen 10 Creatinine 1.07 Estimat Glomerular Filtration 92 Rate Random Glucose 81 Calcium Level 9.5 Magnesium Level 1.9 Total Creatine Kinase 332 Creatine Kinase MB 3.1 Creatine Kinase MB % 0.9 Troponin I LESS THAN 0.02 Ethyl Alcohol Level LESS THAN 3 Result Diagram: 11/11/16225411/11/162254 Imaging Last Impressions Neck CTA 11/11/16 2334 Signed Impressions: Service Date/Time: Saturday, November 12, 2016 00:22 - CONCLUSION: 1. On the initial image of the study there is a linear area of decreased density involving the ascending aorta. This is an area of motion artifact. This may simply be artifact in nature due to the motion. I cannot exclude a dissection involving ascending aorta. A CTA of the thoracic aorta would be needed to further evaluate. 2. Patent carotid arteries and vertebral arteries bilaterally. Rubin Lopez Jr., MD Hip and Pelvis X-Ray 11/11/162305 Signed Impressions: Service Date/Time: Friday, November 11, 2016 23:18 - CONCLUSION: Unremarkable examination of the right hip. Rubin Lpoez Jr., MD Head CT 11/11/162248 Signed Impressions: Service Date/Time: Saturday, November 12, 2016 00:22 - CONCLUSION: Normal examination. Rubin Lopez Jr., MD Chest X-Ray 11/11/162248 Signed Impressions: Service Date/Time: Friday, November 11, 2016 22:57 - CONCLUSION: No acute disease. Rubin Lopez Jr., MD Cervical Spine CT 11/11/16 2249 Signed Impressions: Service Date/Time: Saturday, November 12, 2016 00:22 - CONCLUSION: Normal examination. Rubin Lopez Jr., MD Maxillofacial CT 11/11/16 0000 Signed Impressions: Service Date/Time: Saturday, November 12, 2016 00:25 - CONCLUSION: 1. No acute abnormality. 2. Multiple tiny punctate densities seen involving either the skin surface or the immediate dermal layers. 3. Chronic sinus disease. Rubin Lopez Jr., MD Head CTA 11/11/16 0000 Signed Impressions: Service Date/Time: Saturday, November 12, 2016 00:22 - CONCLUSION: Normal examination. Rubin Lopez Jr., MD Septic Shock Reassessment Heart: Other Lungs: Clear Skin: Warm Peripheral Pulses: Bounding Right Radial Bounding Left Radial Bounding Right Popliteal Bounding Left Popliteal Bounding Right Dorsalis Pedis Bounding Left Dorsalis Pedis Bounding Right Posterior Tibial Bounding Left Posterior Tibial Assessment and Plan Problem List: (1) Syncope and collapse Status: Acute Plan: - Pt admitted after a syncopal episode at home and he sustained a laceration to his chin which was sutured in the ED. - Pt reported some palpitations prior to his collapse. - An EKG was done on arrival which showed a sinus rhythm heart rate of 74, no acute ST segment elevation or depression, T waves are inverted in lead 3, V1. - Chest x-ray showed no acute abnormality. - CT scan Head showed no acute abnormality. - CTA of the brain showed no acute abnormality. - Hip x-ray and pelvis x-ray showed no acute abnormality. - CTA of the neck showed on the initial image of the study a linear area of decreased density involving the face and aorta, this may simply be artifact in nature due to motion but cannot exclude a dissection involving the ascending aorta. - CTA of the thoracic aorta was ordered for this morning and is pending. - Overnight pts telemetry noted bradycardia into the 40's. - 2D echocardiogram is pending. - Holter monitor - Its unclear what caused the pts syncope/collapse but cardiac syncope needs to be evaluated. - Check Lexiscan - Encourage ambulation - DVT prophylaxis (2) Laceration of chin Status: Acute Plan: - Pt received 6 sutures to the chin in the ED (3) Palpitations Status: Acute Plan: - See above. - Pt has had two episodes of palpitations in the last week (4) Tobacco use Status: Chronic Plan: - Counselled on cessation Assessment and Plan Patient examined. Assessment and plan formulated with Chanel Blood PA-C. I agree with the above. syncope. chin lac. had palpitations x 2 and prior to syncope. r/o cardiac syncope..Says he has a brother and uncle with a "hole in heart". holter/echo/lexiscan.. observed overnight. Problem Qualifiers (1) Laceration of chin: Qualified Code: S01.81XA - Laceration of chin, initial encounter Chanel Blood Nov 12, 2016 10:04 Zachariah Huber MD Nov 12, 2016 12:55
[2016-11-12 10:20] LABS: CKMB 2.4 NG/ML (0.5-3.6)
[2016-11-12] MEDS ORDERED: ONDANSETRON HCL 4 MG/2 ML VIAL IV PRN (10:45)
--- NOTE | 2016-11-12 12:07 | EC ---
Study Study Date:11/12/2016 STUDY CONCLUSIONS SUMMARY - Procedure narrative: Transthoracic echocardiography. Image quality was fair. Scanning was performed from the parasternal, apical, and subcostal acoustic windows. - Left ventricle: The cavity size was normal. Wall thickness was normal. Systolic function was normal. The estimated ejection fraction was in the range of 50% to 55%. Although no diagnostic regional wall motion abnormality was identified, this possibility cannot be completely excluded on the basis of this study. - Mitral valve: Trace regurgitation. - Tricuspid valve: Trace regurgitation. If LV function is below 40, please consider prescribing an ACEI or ARB or document rationale for non-use. PROCEDURE DATA STUDY STATUS: Elective. Procedure: Transthoracic echocardiography. Image quality was fair. Scanning was performed from the parasternal, apical, and subcostal acoustic windows. Study completion: The patient tolerated the procedure well. Transthoracic echocardiography. M-mode, complete 2D, complete spectral Doppler, and color Doppler. Height: Height: 74in. Weight: Weight: 193.6lb. Body mass index: BMI: 24.9kg/m^2. Body surface area: BSA: 2.15m^2. Patient status: Inpatient. CARDIAC ANATOMY LEFT VENTRICLE: The cavity size was normal. Wall thickness was normal. Systolic function was normal. The estimated ejection fraction was in the range of 50% to 55%. Although no diagnostic regional wall motion abnormality was identified, this possibility cannot be completely excluded on the basis of this study. AORTIC VALVE: Trileaflet; normal thickness leaflets. Doppler: Transvalvular velocity was within the normal range. There was no stenosis. No regurgitation. Indexed valve area: 1.32cm^2/m^2 (Vmax). Peak gradient: 10mm Hg (S). AORTA: Aortic root: The aortic root was normal in size. MITRAL VALVE: Structurally normal valve. Doppler: Transvalvular velocity was within the normal range. There was no evidence for stenosis. Trace regurgitation. Valve area by pressure half-time: 3.28cm^2. Indexed valve area by pressure half-time: 1.53cm^2/m^2. LEFT ATRIUM: The atrium was normal in size. RIGHT VENTRICLE: The cavity size was normal. Wall thickness was normal. PULMONIC VALVE: Doppler: Transvalvular velocity was within the normal range. There was no evidence for stenosis. No regurgitation. TRICUSPID VALVE: Structurally normal valve. Doppler: Transvalvular velocity was within the normal range. Trace regurgitation. PULMONARY ARTERY: The main pulmonary artery was normal-sized. Systolic pressure was within the normal range. RIGHT ATRIUM: The atrium was normal in size. PERICARDIUM: There was no pericardial effusion. SYSTEMIC VEINS: Inferior vena cava: The vessel was normal in size. Patient weight: 193.6lb _Ejection fraction:_ 65-75% _Fractional shortening:_ 32% up to 5Kg 5-11.5Kg 11.6-22.9Kg 23-45Kg 45-57Kg Aortic Root 7-13 <17 13-22 17-27 17-27 LA diam 6-13 <23 24-38 33-47 37-40 RVID 10-17 7-15 7-15 7-18 8-17 LVIDd 12-22 <32 24-38 33-47 37-40 LVPW 2-4 3-6 5-7 6-8 7-8 IVS 2-4 3-6 5-7 6-8 7-8 BASIC MEASUREMENTS ADULT NORMAL Left ventricle LV internal dimension, ED, chordal 48.2 mm 43-52 level, PLAX LV internal dimension, ES, chordal 32 mm 23-38 level, PLAX Fractional shortening, chordal level, 34 % >29 PLAX LV posterior wall thickness, ED 9.4 mm IVS/LVPW ratio, ED 0.97 <1.3 Volume, ED, MOD, 1-plane 121 ml Volume, ES, MOD, 1-plane 51 ml Ejection fraction, MOD, 1-plane 58 % Stroke volume, MOD, 1-plane 70 ml Volume index, ED, MOD, 1-plane 56 ml/m^2 Volume index, ES, MOD, 1-plane 24 ml/m^2 Stroke index, MOD, 1-plane 32.6 ml/m^2 Ventricular septum Septal thickness, ED 9.13 mm Aortic valve Leaflet separation 21 mm 15-26 Left atrium Anterior-posterior dimension 35 mm Anterior-posterior dimension index 1.63 cm/m^2 <2.2 Right ventricle RV internal dimension, ED, PLAX 32.6 mm 19-38 BASIC MEASUREMENTS ADULT NORMAL Aortic valve Leaflet separation 21 mm 15-26 Aorta Root diameter, ED 30 mm 20-37 Left atrium Anterior-posterior dimension, ES 39 mm 19-40 Anterior-posterior dimension index, ES 1.81 cm/m^2 <2.2 LA/aortic root ratio 1.3 DOPPLER MEASUREMENTS ADULT NORMAL Main pulmonary artery Pressure, S 18 mm Hg =30 Aortic valve Peak velocity, S 161 cm/s Peak gradient, S 10 mm Hg Valve area index, Vmax 1.32 cm^2/m^2 Mitral valve Peak E-wave velocity 69.6 cm/s Peak A-wave velocity 39 cm/s Pressure half-time 67 ms Peak E/A ratio 1.8 Valve area, pressure half-time 3.28 cm^2 Valve area index, pressure half-time 1.53 cm^2/m^2 Tricuspid valve Regurgitant peak velocity 179 cm/s Peak RV-RA gradient, S 13 mm Hg Systemic veins Estimated CVP 10 mm Hg Right ventricle RV pressure, S 23 mm Hg <30 Pulmonic valve Peak velocity, S 111 cm/s LEGEND: Mean values are shown as u=mean value. Asterisk (*) partida values outside specified normal range. Prepared and signed by Vasile Bustillos [id number]
[2016-11-12] MEDS: ACETAMINOPHEN 325 MG TAB PO PRN ×2 (12:17→21:30)
[2016-11-12] MEDS ORDERED: REGADENOSON INJ 0.4 MG/5 ML SYR ONE (13:57)
--- NOTE | 2016-11-12 15:24 | RADRPT ---
EXAM DATE/TIME: 11/12/2016 13:35 [facility] COMPARISON: No previous studies available for comparison. INDICATIONS : Mid chest pain for one week. Sycope with palpitations. Angina. DOSE: 25.4 mCi Tc99m Myoview at stress. 8.7 mCi Tc99m Myoview at rest. 0.4 mg Lexiscan STRESS SYMPTOMS: Dyspnea and nausea. EJECTION FRACTION: 50% MEDICAL HISTORY : None SURGICAL HISTORY : None. ENCOUNTER: Initial ACUITY: 1 week PAIN SCALE: 2/10 LOCATION: Midsternal chest TECHNIQUE: The patient underwent pharmacologic stress with infusion of prescribed dose. Continuous ECG tracing was monitored during stress. Gated SPECT imaging was performed after stress and conventional SPECT i maging was performed at rest. The examination was performed on a SPECT/CT scanner, both attenuation and non-corrected datasets were reviewed. FINDINGS: DISTRIBUTION: The maximum perfused segment at stress is in the lateral wall. Moderate gut activity does obscure the inferior wall. PERFUSION STUDY: The pattern of perfusion at stress is within normal limits. GATED STUDY: There is intact wall motion and thickening without hypokinetic or dyskinetic segments. CONCLUSION: Negative for stress-induced ischemia. Inferior wall is obscured. Ejection fraction is mildly depres sed with normal wall motion. RISK CATEGORY: Low (<1% Annual Mortality Rate) Jae Farr MD FACR on November 12, 2016 at 15:20 Board Certified Radiologist. This report was verified electronically.
[2016-11-12 16:31] LABS: ANION GAP 7 MEQ/L (5-15); BICARBONATE 27.6 MEQ/L (21.0-32.0); BLOOD UREA NITROGEN 7 MG/DL (7-18); CHLORIDE 104 MEQ/L (98-107); GLOMERULAR FILTRATION RATE 114 ML/MIN (>89); MAGNESIUM 1.9 MG/DL (1.5-2.5); POTASSIUM 3.8 MEQ/L (3.5-5.1); SODIUM (NA) 139 MEQ/L (136-145)
--- NOTE | 2016-11-12 20:27 | RADRPT ---
EXAM DATE/TIME: 11/12/2016 09:23 [facility] COMPARISON: No previous studies available for comparison. INDICATIONS : Evaluate for thoracic arch dissection. IV CONTRAST: 95 cc Omnipaque 350 (iohexol) IV RADIATION DOSE: 16.85 CTDIvol (mGy) MEDICAL HISTORY : None SURGICAL HISTORY : None. ENCOUNTER: Initial ACUITY: 1 day PAIN SCALE: 0/10 LOCATION: chest TECHNIQUE: Volumetric scanning was performed using a multi-row detector CT scanner. The data was post processed with a variety of visualization algorithms including full volume maximum intensity projection, multi -planar sliding thin slab reformation, curved planar reformation, and surface rendering techniques. Using automated exposure control and adjustment of the mA and/or kV according to patient size, radiat ion dose was kept as low as reasonably achievable to obtain optimal diagnostic quality images. FINDINGS: LUNGS: There is no consolidation or pneumothorax. No concerning pulmonary nodule is visualized. No pleural fluid is present. MEDIASTINUM: No abnormally enlarged lymph nodes by CT criteria. No axillary or hilar abnormalities are identified. ABDOMEN: The liver and spleen are free of focal defects. The gallbladder and pancreas demonstrate no abnormali ty. The adrenal glands are normal. The kidneys demonstrate no evidence of solid renal mass or hydrone phrosis. No free fluid or abdominal masses are identified. No para-aortic adenopathy is seen. THORACIC AORTA: The thoracic aortic root is normal with normal branching of the great vessels. There is no evidence of aneurysm or dissection. ABDOMINAL AORTA: The aorta is normal in caliber without aneurysm or dissection. The renal arteries are patent bilater ally. The proximal celiac and superior mesenteric arteries are patent and normal in diameter. CONCLUSION: Normal examination. Geraldo Vogel MD on November 12, 2016 at 20:20 Board Certified Radiologist. This report was verified electronically.
[2016-11-13] VITALS: BP 106/68; PULSE 62; RESP 20; TEMP 97.6; O2SAT 95
[2016-11-13 04:00] VITALS: BP 102/60; PULSE 66; RESP 20; TEMP 97.8; O2SAT 97
[2016-11-13 07:53] VITALS: BP 127/84; PULSE 61; RESP 20; TEMP 98; O2SAT 99
--- NOTE | 2016-11-13 08:48 | HHI.PR ---
Subjective Remarks Pt feeling well today. He has been up and ambulating without any nausea or dizziness He complains of a frontal headache which he feels is likely related to his fall Objective Vitals Vital Signs Date Time Temp Pulse Resp B/P Pulse Ox O2 Delivery O2 Flow Rate FiO2 11/13/16 07:53 98.0 61 20 127/84 99 11/13/16 04:00 97.8 66 20 102/60 97 11/13/16 00:00 97.6 62 20 106/68 95 11/12/16 22:34 20 11/12/16 22:26 52 11/12/16 16:00 52 11/12/16 15:15 97.8 53 16 120/76 99 11/12/16 11:31 97.8 59 16 108/73 98 Result Diagram: 11/11/16 2255 11/12/16 1523 Other Results Laboratory Tests Test 11/11/16 11/12/16 11/12/16 22:55 09:20 15:23 White Blood Count 8.7 TH/MM3 Red Blood Count 4.28 MIL/MM3 Hemoglobin 12.7 GM/DL Hematocrit 37.6 % Mean Corpuscular Volume 87.8 FL Mean Corpuscular Hemoglobin 29.6 PG Mean Corpuscular Hemoglobin 33.7 % Concent Red Cell Distribution Width 12.7 % Platelet Count 249 TH/MM3 Mean Platelet Volume 7.9 FL Neutrophils (%) (Auto) 47.1 % Lymphocytes (%) (Auto) 42.7 % Monocytes (%) (Auto) 6.9 % Eosinophils (%) (Auto) 2.3 % Basophils (%) (Auto) 1.0 % Neutrophils # (Auto) 4.1 TH/MM3 Lymphocytes # (Auto) 3.7 TH/MM3 Monocytes # (Auto) 0.6 TH/MM3 Eosinophils # (Auto) 0.2 TH/MM3 Basophils # (Auto) 0.1 TH/MM3 CBC Comment AUTO DIFF Differential Comment AUTO DIFF CONFIRMED Platelet Estimate NORMAL Platelet Morphology Comment NORMAL Red Cell Morphology Comment NORMAL Prothrombin Time 11.4 SEC Prothromb Time International 1.0 RATIO Ratio Activated Partial 28.8 SEC Thromboplast Time Sodium Level 141 MEQ/L 139 MEQ/L Potassium Level 3.3 MEQ/L 3.8 MEQ/L Chloride Level 104 MEQ/L 104 MEQ/L Carbon Dioxide Level 27.2 MEQ/L 27.6 MEQ/L Anion Gap 10 MEQ/L 7 MEQ/L Blood Urea Nitrogen 10 MG/DL 7 MG/DL Creatinine 1.07 MG/DL 0.89 MG/DL Estimat Glomerular Filtration 92 ML/MIN 114 ML/MIN Rate Random Glucose 81 MG/DL 99 MG/DL Calcium Level 9.5 MG/DL 9.2 MG/DL Magnesium Level 1.9 MG/DL 1.9 MG/DL Total Creatine Kinase 332 U/L 327 U/L Creatine Kinase MB 3.1 NG/ML 2.4 NG/ML Creatine Kinase MB % 0.9 % 0.7 % Troponin I LESS THAN 0.02 LESS THAN 0.02 LESS THAN 0.02 NG/ML NG/ML NG/ML Ethyl Alcohol Level LESS THAN 3 MG/DL Imaging Last Impressions Aorta CTA 11/12/16 0817 Signed Impressions: Service Date/Time: Saturday, November 12, 2016 09:23 - CONCLUSION: Normal examination. Geraldo Vogel MD Myocardial Perfusion Scan Nuc Med 11/12/16 0000 Signed Impressions: Service Date/Time: Saturday, November 12, 2016 13:35 - CONCLUSION: Negative for stress-induced ischemia. Inferior wall is obscured. Ejection fraction is mildly depressed with normal wall motion. RISK CATEGORY: Low (<1%% Annual Mortality Rate) Jae Farr MD FACR Neck CTA 11/11/164 Signed Impressions: Service Date/Time: Saturday, November 12, 2016 00:22 - CONCLUSION: 1. On the initial image of the study there is a linear area of decreased density involving the ascending aorta. This is an area of motion artifact. This may simply be artifact in nature due to the motion. I cannot exclude a dissection involving ascending aorta. A CTA of the thoracic aorta would be needed to further evaluate. 2. Patent carotid arteries and vertebral arteries bilaterally. Rubin Lopez Jr., MD Hip and Pelvis X-Ray 11/11/16 1450 Signed Impressions: Service Date/Time: Friday, November 11, 2016 23:18 - CONCLUSION: Unremarkable examination of the right hip. Rubin Lopez Jr., MD Head CT 11/11/162248 Signed Impressions: Service Date/Time: Saturday, November 12, 2016 00:22 - CONCLUSION: Normal examination. Rubin Lopez Jr., MD Chest X-Ray 11/11/162248 Signed Impressions: Service Date/Time: Friday, November 11, 2016 22:57 - CONCLUSION: No acute disease. Rubin Lopez Jr., MD Cervical Spine CT 11/11/16 2249 Signed Impressions: Service Date/Time: Saturday, November 12, 2016 00:22 - CONCLUSION: Normal examination. Rubin Lopez Jr., MD Maxillofacial CT 11/11/16 0000 Signed Impressions: Service Date/Time: Saturday, November 12, 2016 00:25 - CONCLUSION: 1. No acute abnormality. 2. Multiple tiny punctate densities seen involving either the skin surface or the immediate dermal layers. 3. Chronic sinus disease. Rubin Lopez Jr., MD Head CTA 11/11/16 0000 Signed Impressions: Service Date/Time: Saturday, November 12, 2016 00:22 - CONCLUSION: Normal examination. Rubin Lopez Jr., MD Objective Remarks General: NAD, AAOx3 Chest: CTA bilaterally Cardiac: Regular, dorina Abd: +BS, soft ND/NT Ext: No edema A/P Problem List: (1) Syncope and collapse Status: Acute Plan: - Pt admitted after a syncopal episode at home and he sustained a laceration to his chin which was sutured in the ED. - Pt reported some palpitations prior to his collapse. - An EKG was done on arrival which showed a sinus rhythm heart rate of 74, no acute ST segment elevation or depression, T waves are inverted in lead 3, V1. - Chest x-ray showed no acute abnormality. - CT scan Head showed no acute abnormality. - CTA of the brain showed no acute abnormality. - Hip x-ray and pelvis x-ray showed no acute abnormality. - CTA of the neck showed on the initial image of the study a linear area of decreased density involving the face and aorta, this may simply be artifact in nature due to motion but cannot exclude a dissection involving the ascending aorta. - CTA of the aorta was normal - 2D echocardiogram --> EF 50-55%, trace mitral regurg, trace tricuspid regurg - Lexiscan --> Negative for stress-induced ischemia. Inferior wall is obscured. Ejection fraction is mildly depressed with normal wall motion. - Pts telemetry noted bradycardia into the 40's. There were a few blips of tachycardia, possibly SVT and then decreased HR. This was reviewed with Dr. Harper and he recommended a 2 week event monitor which will be set up upon discharge at [facility] Cardiology office as well as a [address] Harper. - Pt to be discharged to home today with a 2 week event monitor and followup with Dr. Harper. - Discussed with the pt that he will need to be on light duty at work, no climbing ladders or heavy lifting and was given a note for work. - He is not to drive for the next few weeks until cleared by Cardiology to do so. He is also to have someone with him when showering or submerged in any body of water/bathtub. This was discussed with his girlfriend as well. - I called Dr. Rosas's office and spoke with Madiha, his nurse to provide information regarding the pts hospitalization and will need a followup early next week for suture removal and hospital followup. (2) Laceration of chin Status: Acute Plan: - Pt received 6 sutures to the chin in the ED - pt will need to followup with his PCP, Dr. Rosas regarding removal of the sutures. (3) Palpitations Status: Acute Plan: - See above. - Pt has had two episodes of palpitations in the last week (4) Tobacco use Status: Chronic Plan: - Counselled on cessation Assessment and Plan Patient examined. Assessment and plan formulated with Chanel Blood PA-C. I agree with the above. short bursts of supraventricular tachy noted on tele. asx pt. echo and jose ok. no further events. pt wants to go home. reviewed his ekg, tele strips, sx's with cardiology dr harper. he is ok with dc and arranged a 2 week event monitor for pickup today. also a f/u appt with dr harper. discussed with pt/ .....recommend that he not drive, be alone in water, and also do light work at his job until cardiology eval complete. Problem Qualifiers (1) Laceration of chin: Qualified Code: S01.81XA - Laceration of chin, initial encounter Chanel Blood Nov 13, 2016 08:47 Zachariah Huber MD Nov 13, 2016 20:27
[2016-11-13 10:10] LABS: AUTOMATED NEUTROPHIL # 3.8 TH/MM3 (1.8-7.7); BASOPHIL % 0.5 % (0.0-2.0); EOSINOPHIL # 0.2 TH/MM3 (0-0.4); HEMATOCRIT 36.8 % (39.0-51.0); HEMO FLAGS DIFF FINAL; LYMPH % 33.2 % (9.0-44.0); LYMPHOCYTE # 2.2 TH/MM3 (1.0-4.8); MEAN CELL VOLUME 90.5 FL (80.0-100.0); MEAN CORPUSCULAR HEMOGLOBIN 29.8 PG (27.0-34.0); MEAN CORPUSCULAR HGB CONC 32.9 % (32.0-36.0); MONO % 6.5 % (0.0-8.0); NEUT % 56.8 % (16.0-70.0); PLATELET COUNT 241 TH/MM3 (150-450); RED BLOOD COUNT 4.07 MIL/MM3 (4.50-5.90); WHITE BLOOD COUNT 6.7 TH/MM3 (4.0-11.0)
[2016-11-13 10:29] LABS: BICARBONATE 31.5 MEQ/L (21.0-32.0); MAGNESIUM 1.9 MG/DL (1.5-2.5); POTASSIUM 4.1 MEQ/L (3.5-5.1)
--- NOTE | 2016-11-13 11:45 | HHI.DCPOC ---
Discharge Care Plan Diagnosis: (1) Head injury (2) Laceration of chin (3) Palpitations (4) Syncope and collapse Goals to Promote Your Health - Pt is recommended a 2 week event monitor placement which will be set up upon discharge at [facility] Cardiology office as well as a [address] Vivar. - Discussed with the pt and his girlfriend that he will need to be on light duty at work, no climbing ladders or heavy lifting and was given a note for work. - He is not to drive for the next few weeks until cleared by Cardiology to do so. He is also to have someone with him when showering or submerged in any body of water/bathtub. - I called Dr. Rosas's office and spoke with Madiha, his nurse to provide information regarding the pts hospitalization and will need a followup early next week for suture removal and hospital followup. Pt is to call [phone] an appt with Dr. Rosas. - He is to followup with either Dr. Rosas's office or [facility] for suture removal on either 11/17/16 or 11/18/16 Directions to Meet Your Goals Take your medications as prescribed Follow your dietary instruction Follow activity as directed Keep your appointments as scheduled Take your immunizations and boosters as scheduled If your symptoms worsen call your PCP, if no PCP go to Urgent Care Center or Emergency Room Smoking is Dangerous to Your Health. Avoid second hand smoke Call the 24-hour hour crisis hotline for domestic abuse at Chanel Blood Nov 13, 2016 11:45
== END 2016-11-13 13:31 | disposition home or self-care (01) | DRG 312 ==
LOC: NEPE 22:41 → NEDA 11-12 02:41 → NEPGCP 11-12 05:52 → OBSVTOIN 11-12 13:20
PROVIDERS: ADMIT Hospitalist; ATTEND Hospitalist
PROC: 0HQ1XZZ Repair Face Skin, External Approach (ICD-10-PCS; principal; 2016-11-12)
DX: R55 Syncope and collapse (principal); R00.2 Palpitations; R00.1 Bradycardia, unspecified; S01.81XA Laceration without foreign body of other part of head, initial encounter; R51 Headache; W19.XXXA Unspecified fall, initial encounter; Y92.003 Bedroom of unspecified non-institutional (private) residence as the place of occurrence of the external cause; F17.210 Nicotine dependence, cigarettes, uncomplicated
CPT/HCPCS: 12011; 70450; 70486; 70496; 70498; 71010; 71275; 72125; 73502; 74174; 76937; 78452; 80048; 80307; 82550; 82552; 83735; 84484; 85025; 85610; 85730; 93005; 93017; 93306; 96374; 96375; A9502; G0378; J1170; J2405; J2785; J7030; L0150; Q9967

== ENCOUNTER 2016-12-04 06:44 | Emergency (ER) | payer OTHER ==
[~2016-12-04] VITALS: Ht 185.4 cm; Wt 105.0 kg
[2016-12-04 06:46] VITALS: BP 134/83; PULSE 77; RESP 18; TEMP 97.4; O2SAT 98
[2016-12-04] MEDS ORDERED: SODIUM CHLORIDE 0.9% FLUSH 10 ML FLUSH IVF PRN (07:15)
[2016-12-04 07:40] VITALS: BP 146/86; PULSE 62
[2016-12-04 07:41] VITALS: O2SAT 100
[2016-12-04] MEDS ORDERED: MORPHINE SULFATE 4 MG/ML INJ IV PUSH ONE (07:45)
[2016-12-04] MEDS ORDERED: ONDANSETRON HCL 4 MG/2 ML VIAL IV PUSH ONE (07:45)
[2016-12-04] MEDS ORDERED: SODIUM CHLOR 0.9% 1000 ML INJ 1,000 ML IV ONE (07:45)
[2016-12-04 07:58] LABS: AUTOMATED NEUTROPHIL # 3.6 TH/MM3 (1.8-7.7); BASOPHIL % 0.5 % (0.0-2.0); EOSINOPHIL # 0.2 TH/MM3 (0-0.4); HEMATOCRIT 36.3 % (39.0-51.0); HEMO FLAGS DIFF FINAL; LYMPH % 31.4 % (9.0-44.0); LYMPHOCYTE # 1.9 TH/MM3 (1.0-4.8); MEAN CELL VOLUME 88.9 FL (80.0-100.0); MEAN CORPUSCULAR HEMOGLOBIN 29.9 PG (27.0-34.0); MEAN CORPUSCULAR HGB CONC 33.6 % (32.0-36.0); NEUT % 59.1 % (16.0-70.0); PLATELET COUNT 261 TH/MM3 (150-450); RED BLOOD COUNT 4.09 MIL/MM3 (4.50-5.90); RED CELL DISTRIBUTION WIDTH 13.2 % (11.6-17.2); WHITE BLOOD COUNT 6.1 TH/MM3 (4.0-11.0)
--- NOTE | 2016-12-04 08:04 | PD ---
HPI Chief Complaint: General Weakness Time Seen by Provider: 07:42 Travel History International Travel<30 days: No Contact w/Intl Traveler<30days: No Traveled to known affect area: No History of Present Illness HPI 40-year-old male with history of recent syncopal episode, apparently had some episodes of bradycardia on monitors, had hit his head but had no intracranial injuries identified on CAT scan, awaiting for follow-up with neurology, recommended for MRI due to ongoing headaches over the last few weeks, presents to the ER today because he is having headaches and pains all over his body, he states the headache radiates down to his chest and to the rest of the body, currently pain is measured at a 10 out of 10. He states he has been having palpitations, try to get to work today and could not work according to his girlfriend. He denies any fevers, vomiting, or any other symptoms. He does not know any exacerbating or alleviating factors. Modifying Factors: None Associated Signs & Symptoms: Headaches, body pains, palpitations Risk Factors: Chronic headaches since syncopal episode, awaiting neurology evaluation, bradycardia PFSH Past Medical History Diminished Hearing: No Gastrointestinal Disorders: Yes (CONSTIPATION) Past Surgical History Other Surgery: Yes (L HAND SKIN GRAFT) Social History Alcohol Use: Yes (OCC) Tobacco Use: Yes (LESS THAN 1/2 PPD) Substance Use: No Allergies-Medications (Allergen,Severity, Reaction): Coded Allergies: No Known Allergies (Verified , 12/04/16) Reported Meds & Prescriptions Reported Meds & Active Scripts Active No Active Prescriptions or Reported Medications Review of Systems Except as stated in HPI: all other systems reviewed are Neg Physical Exam Narrative GENERAL: Well-developed -[place] male in male patient currently in moderate distress. Awake and oriented 3. Mild photophobia. SKIN: Focused skin assessment warm/dry. HEAD: Atraumatic. Normocephalic. EYES: Pupils equal and round. No scleral icterus. No injection or drainage. ENT: No nasal bleeding or discharge. Mucous membranes pink and moist. NECK: Trachea midline. No JVD. CARDIOVASCULAR: Regular rate and rhythm. No murmur appreciated. RESPIRATORY: No accessory muscle use. Clear to auscultation. Breath sounds equal bilaterally. GASTROINTESTINAL: Abdomen soft, non-tender, nondistended. Hepatic and splenic margins not palpable. MUSCULOSKELETAL: No obvious deformities. No clubbing. No cyanosis. No edema. NEUROLOGICAL: Awake and alert. No obvious cranial nerve deficits. Motor grossly within normal limits. Normal speech. PSYCHIATRIC: Appropriate mood and affect; insight and judgment normal. Data Data Last Documented VS Vital Signs Date Time Temp Pulse Resp B/P Pulse Ox O2 Delivery O2 Flow Rate FiO2 12/04/16 10:20 62 17 126/84 99 Room Air 12/04/16 07:41 2 12/04/16 06:46 97.4 Orders Electrocardiogram (12/04/16 07:13) Ckmb (Isoenzyme) Profile (12/04/16 07:13) Complete Blood Count With Diff (12/04/16 07:13) Comprehensive Metabolic Panel (12/04/16 07:13) Magnesium (Mg) (12/04/16 07:13) Prothrombin Time / Inr (Pt) (12/04/16 07:13) Act Partial Throm Time (Ptt) (12/04/16 07:13) Troponin I (12/04/16 07:13) Ecg Monitoring (12/04/16 07:13) Bilateral Bp Monitoring (12/04/16 07:13) Iv Access Insert/Monitor (12/04/16 07:13) Oximetry (12/04/16 07:13) Oxygen Administration (12/04/16 07:13) Sodium Chloride 0.9% Flush (Ns Flush) (12/04/16 07:15) Mri Brain W&W/O Contrast (12/04/16 07:44) Sodium Chlor 0.9% 1000 Ml Inj (Ns 1000 M (12/04/16 07:45) Morphine Inj (Morphine Inj) (12/04/16 07:45) Ondansetron Inj (Zofran Inj) (12/04/16 07:45) Urinalysis - C+S If Indicated (12/04/16 07:44) Drug Screen, Random Urine (12/04/16 07:44) Influenzae A/B Antigen (12/04/16 07:44) CKMB (12/04/16 07:30) CKMB% (12/04/16 07:30) Gadodiamide Pf Inj (Omniscan Pf Inj) (12/04/16 10:44) Labs Laboratory Tests Test 12/04/16 12/04/16 07:30 10:30 White Blood Count 6.1 TH/MM3 Red Blood Count 4.09 MIL/MM3 Hemoglobin 12.2 GM/DL Hematocrit 36.3 % Mean Corpuscular Volume 88.9 FL Mean Corpuscular Hemoglobin 29.9 PG Mean Corpuscular Hemoglobin 33.6 % Concent Red Cell Distribution Width 13.2 % Platelet Count 261 TH/MM3 Mean Platelet Volume 8.5 FL Neutrophils (%) (Auto) 59.1 % Lymphocytes (%) (Auto) 31.4 % Monocytes (%) (Auto) 6.0 % Eosinophils (%) (Auto) 3.0 % Basophils (%) (Auto) 0.5 % Neutrophils # (Auto) 3.6 TH/MM3 Lymphocytes # (Auto) 1.9 TH/MM3 Monocytes # (Auto) 0.4 TH/MM3 Eosinophils # (Auto) 0.2 TH/MM3 Basophils # (Auto) 0.0 TH/MM3 CBC Comment DIFF FINAL Differential Comment Prothrombin Time 10.9 SEC Prothromb Time International 1.0 RATIO Ratio Activated Partial 30.1 SEC Thromboplast Time Sodium Level 137 MEQ/L Potassium Level 4.1 MEQ/L Chloride Level 105 MEQ/L Carbon Dioxide Level 25.3 MEQ/L Anion Gap 7 MEQ/L Blood Urea Nitrogen 10 MG/DL Creatinine 1.15 MG/DL Estimat Glomerular Filtration 85 ML/MIN Rate Random Glucose 94 MG/DL Calcium Level 9.1 MG/DL Magnesium Level 1.7 MG/DL Total Bilirubin 0.4 MG/DL Aspartate Amino Transf 40 U/L (AST/SGOT) Alanine Aminotransferase 46 U/L (ALT/SGPT) Alkaline Phosphatase 81 U/L Total Creatine Kinase 190 U/L Creatine Kinase MB 1.9 NG/ML Troponin I LESS THAN 0.02 NG/ML Total Protein 8.0 GM/DL Albumin 3.6 GM/DL Urine Color YELLOW Urine Turbidity CLEAR Urine pH 7.0 Urine Specific Byron 1.012 Urine Protein NEG mg/dL Urine Glucose (UA) NEG mg/dL Urine Ketones NEG mg/dL Urine Occult Blood NEG Urine Nitrite NEG Urine Bilirubin NEG Urine Urobilinogen LESS THAN 2.0 MG/DL Urine Leukocyte Esterase MOD Urine RBC LESS THAN 1 /hpf Urine WBC 2 /hpf Microscopic Urinalysis Comment CULT NOT INDICATED Urine Opiates Screen NEG Urine Barbiturates Screen NEG Urine Amphetamines Screen NEG Urine Benzodiazepines Screen NEG Urine Cocaine Screen NEG Urine Cannabinoids Screen POS MDM Medical Decision Making Medical Screen Exam Complete: Yes Emergency Medical Condition: Yes Medical Record Reviewed: Yes Interpretation(s) EKG shows sinus bradycardia at a rate of 54 bpm with no signs of acute ST-T changes. Laboratory Tests Test 12/04/16 12/04/16 07:30 10:30 Red Blood Count 4.09 MIL/MM3 (4.50-5.90) Hemoglobin 12.2 GM/DL (13.0-17.0) Hematocrit 36.3 % (39.0-51.0) Estimat Glomerular Filtration 85 ML/MIN (>89) Rate Aspartate Amino Transf 40 U/L (15-37) (AST/SGOT) Troponin I LESS THAN 0.02 NG/ML (0.02-0.05) Urine Leukocyte Esterase MOD (NEG) Urine Cannabinoids Screen POS (NEG) Last 24 hours Impressions Brain MRI 12/04/16 0744 Signed Impressions: Service Date/Time: , December 04, 2016 09:40 - CONCLUSION: 1. No evidence of acute intracranial pathology. No masses are identified. Sal Multani MD Differential Diagnosis Headache, body pains, palpitationsconcussion versus acute intracranial processes versus dehydration versus metabolic issues versus viral syndrome versus dysrhythmias Narrative Course EKG did not show any signs of ST changes. This seems to be more of a generalized body pain. She states that he is having these headaches which radiate down his body, is having chest pains, body pains, and is more generalized. I am not suspecting an acute cardiac issue in this case. He does not have any signs of ST changes on EKG. He has mild bradycardia but is not reporting any dizziness. He was given IV fluids, symptomatically relief or pains. MRI was ordered for him which did not show any signs of acute processes. At this point, vital signs are stable and patient reports improvement in symptoms on reevaluation at 11:30 AM. He is sitting up, conversant, and states that this has been going on for almost a month. I suspect he may have some underlying concussion causing his current symptoms. I have also discussed doing a lumbar puncture for further rule out of acute processes with him. He states understanding, but declines to get a lumbar puncture at this time. I have talked him about the fact that we would not be to rule out any signs of underlying subacute bleeding which could cause further morbidity. Patient states that he wants to defer at this time and wants to follow-up with primary care and neurologist. Return for any worsening in symptoms as necessary. The plan has discussed with him and he states understanding. Diagnosis Primary Impression: Concussion Additional Impression: Headache Med/Other Pt SpecificInfo: Prescription(s) given Scripts Ibuprofen (Motrin Ib)200 Mg Ngb002 Mg PO Q6H PRN (PAIN SCALE 1 TO 10) #21 TAB Ref 0 Prov:Osmani Ibarra MD 12/04/16 Ondansetron Odt (Zofran Odt)4 Mg Tab4 Mg SL Q6HR PRN (Nausea/Vomiting) #7 TAB Ref 0 Prov:Osmani Ibarra MD 12/04/16 Disposition: 01 DISCHARGE HOME Condition: Stable Osmani Ibarra MD Dec 04, 2016 08:04
[2016-12-04 08:07] LABS: APTT (PATIENT) 30.1 SEC (24.3-30.1); PROTHROMBIN TIME - PATIENT 10.9 SEC (9.8-11.6)
[2016-12-04 08:10] VITALS: BP 146/86; PULSE 62; RESP 18; O2SAT 100
[2016-12-04 08:12] LABS: ANION GAP 7 MEQ/L (5-15); AST (GOT) 40 U/L (15-37); BICARBONATE 25.3 MEQ/L (21.0-32.0); BLOOD UREA NITROGEN 10 MG/DL (7-18); CHLORIDE 105 MEQ/L (98-107); GLOMERULAR FILTRATION RATE 85 ML/MIN (>89); MAGNESIUM 1.7 MG/DL (1.5-2.5); POTASSIUM 4.1 MEQ/L (3.5-5.1); SODIUM (NA) 137 MEQ/L (136-145)
[2016-12-04 08:17] LABS: ALKALINE PHOSPHATASE 81 U/L (45-117); ALT (GPT) 46 U/L (12-78); CREATINE KINASE 190 U/L (39-308); TOTAL BILIRUBIN ADULT 0.4 MG/DL (0.2-1.0)
[2016-12-04 08:29] LABS: CKMB 1.9 NG/ML (0.5-3.6)
[2016-12-04 10:20] VITALS: BP 126/84; PULSE 62; RESP 17; O2SAT 99
[2016-12-04] MEDS ORDERED: GADODIAMIDE PF 287 MG/ML 20 ML VIAL (for RAD MRI) IV ONE (10:44)
[2016-12-04 10:54] LABS: BLOOD, URINE NEG (NEG); COMMENT (UR) CULT NOT INDICATED; CULTURE IF INDICATED CULT NOT INDICATED; GLUCOSE,URINE NEG (NEG); KETONE, URINE NEG (NEG); NITRITE,URINE NEG (NEG); URINE COLOR YELLOW (YELLW/STRAW)
[2016-12-04 10:58] LABS: AMPHETAMINE, URINE NEG (NEG); BARBITURATES, URINE NEG (NEG); COCAINE, URINE NEG (NEG)
--- NOTE | 2016-12-04 11:13 | RADRPT ---
EXAM DATE/TIME: 12/04/2016 09:40 [facility] COMPARISON: No previous studies available for comparison. INDICATIONS : Cephalgia. Lightheaded. CONTRAST: 20 cc Omniscan (gadodiamide) IV MEDICAL HISTORY : None. SURGICAL HISTORY : None. ENCOUNTER: Initial ACUITY: 1 day PAIN SCORE: 8/10 LOCATION: Head. TECHNIQUE: Multiplanar, multisequence MRI of the brain was performed both prior to and following the administrat ion of paramagnetic contrast. FINDINGS: CEREBRUM: The ventricles are normal for age. No evidence of midline shift, mass lesion, hemorrhage or acute in farction. No extraaxial fluid collections are seen. The pituitary gland and suprasellar cistern are normal in configuration. WHITE MATTER: No significant signal abnormalities are seen in the white matter. POSTERIOR FOSSA: The cerebellum and brainstem are intact. The 4th ventricle is midline. The cerebellopontine angle is unremarkable. The cerebellar tonsils are normal in position. DIFFUSION IMAGING: No focal areas of restricted diffusion are seen. No evidence of acute infarction. EXTRACRANIAL: The visualized portions of the orbits and paranasal sinuses are unremarkable with the exception of po lypoid mucosal disease in the right maxillary sinus. POST-CONTRAST: No abnormal areas of parenchymal or dural enhancement. No evidence of blood-brain barrier breakdown. CONCLUSION: 1. No evidence of acute intracranial pathology. No masses are identified. Sal Multani MD on December 04, 2016 at 11:10 Board Certified Radiologist. This report was verified electronically.
[2016-12-04] MEDS ORDERED: ZOFR4TAB3 SL (11:34)
[2016-12-04] MEDS ORDERED: MOTR200T4 PO (11:34)
[2016-12-04 12:00] VITALS: BP 118/78
--- NOTE | 2016-12-04 13:51 | EKG ---
Date Performed: 12/04/2016 Time Performed: 07:21:11 PTAGE: 40 years EKG: SINUS BRADYCARDIA BORDERLINE ECG Compared to prior tracing no significant change PREVIOUS TRACING : 11/11/2016 22.54 DOCTOR: Sal Fisher Interpretating Date/Time 12/04/2016 13:50:22
== END 2016-12-04 12:05 | disposition home or self-care (01) ==
LOC: NEPC 06:44
DX: S06.0X9A Concussion with loss of consciousness of unspecified duration, initial encounter (principal); R00.1 Bradycardia, unspecified; R55 Syncope and collapse; X58.XXXA Exposure to other specified factors, initial encounter
CPT/HCPCS: 70553; 80053; 80307; 81001; 82550; 82552; 83735; 84484; 85025; 85610; 85730; 87804; 93005; 96361; 96374; 96375; 99284; A9579; J2270; J2405; J7030